=== PATIENT | female | born 1975 | race Caucasian/White ===

== ENCOUNTER 2022-06-30 11:45 | Inpatient (IN) | payer BC ==
[2022-07-05] MEDS ORDERED: Midazolam HCl 2 mg/2 ml Vial ONE (06:41)
[2022-07-05] MEDS ORDERED: fentaNYL PF 100 MCG/2 ML SYRINGE ONE (06:42)
[2022-07-05] MEDS ORDERED: Bupivacaine/Epinephrine 0.25% 30 ML VIAL ONE (07:13)
[2022-07-05] MEDS ORDERED: cefOXitin 2 GM VIAL ONE ×3 (07:26→17:29)
[2022-07-05] MEDS ORDERED: Sodium Chloride 0.9% 100 ML ONE ×2 (07:26→17:29)
[2022-07-05] MEDS ORDERED: Dexamethasone 20 MG/5 ML VIAL ONE (07:37)
[2022-07-05] MEDS ORDERED: Rocuronium Bromide 10 MG/ML (10ML VIAL) ONE (07:37)
[2022-07-05] MEDS ORDERED: Ketorolac Tromethamine 30 MG/ML VIAL ONE ×2 (07:37→15:58)
[2022-07-05] MEDS ORDERED: PROPOFOL 200 MG/20 ML VIAL ONE (07:37)
[2022-07-05] MEDS ORDERED: Ondansetron PF 4 MG/2 ML Vial ONE (07:37)
[2022-07-05 07:54] LABS: SARS-CoV-2 NAA Rapid Test Not Detected (NotDetected)
[2022-07-05] MEDS ORDERED: Promethazine HCl 25 MG/ML VIAL IVPB PRN (10:19)
[2022-07-05] MEDS ORDERED: Ondansetron HCl/PF 4 MG/2 ML Vial IVP PRN (10:19)
[2022-07-05] MEDS ORDERED: Promethazine HCl 25 MG/ML VIAL IM PRN ×3 (10:19→10:48)
[2022-07-05] MEDS ORDERED: HYDROmorphone 2 MG/ML VIAL SLOW IVP PRN (10:19)
[2022-07-05] MEDS ORDERED: Ondansetron PF 4 MG/2 ML Vial IVP PRN ×2 (10:33→10:48)
[2022-07-05] MEDS ORDERED: hydrALAZINE 20 MG/ML VIAL SLOW IVP PRN (10:33)
[2022-07-05] MEDS ORDERED: Zolpidem Tartrate 5 MG TAB PO PRN (10:48)
[2022-07-05] MEDS ORDERED: Naloxone HCl 0.4 mg/ml Vial IV PRN (10:48)
[2022-07-05] MEDS ORDERED: diphenhydrAMINE 50 MG/ML VIAL IM PRN (10:48)
[2022-07-05] MEDS ORDERED: diphenhydrAMINE 50 MG/ML VIAL IVP PRN (10:48)
[2022-07-05] MEDS ORDERED: FENTANYL 500 MCG/10 ML VIAL 2,000 MCG in Sodium Chloride 0.9% 60 ML IV PRN (10:48)
[2022-07-05] MEDS ORDERED: diphenhydrAMINE 25 MG CAP PO PRN (10:48)
[2022-07-05] MEDS ORDERED: Communication Order-Pharmacy FS SCH (11:00)
[2022-07-05] MEDS ORDERED: FENTANYL 50 MCG/ML 1 ML VIAL ONE (11:04)
[2022-07-05] MEDS: Sodium Chloride 0.9% 1,000 ML IV SCH ×2 (13:20→21:39)
[2022-07-05] MEDS: Ketorolac Tromethamine 30 MG/ML VIAL IVP SCH ×2 (16:04→21:39)
[2022-07-05] MEDS: cefOXitin 2 GM in Sodium Chloride 0.9% 100 ML IVPB SCH (17:40)
[2022-07-05] MEDS: Famotidine/PF 20 mg/2ml Vial SLOW IVP SCH (21:38)
[2022-07-05] MEDS: Famotidine 20 MG TAB PO SCH (21:39)
[2022-07-05 22:47] VITALS: BMI 27.1
[2022-07-06] MEDS: Ketorolac Tromethamine 30 MG/ML VIAL IVP SCH ×4 (03:41→23:14)
[2022-07-06] MEDS: cefOXitin 2 GM in Sodium Chloride 0.9% 100 ML IVPB SCH (03:43)
[2022-07-06 05:15] LABS: #Lymphocytes 1.4 thou/uL (1.20-3.40); #Monocytes 0.6 thou/uL (0.11-0.59); #Neutrophils 6.1 thou/uL (1.40-6.50); %Basophils 0.3 % (0.0-1.0); %Eosinophils 0.5 % (0.0-10.0); %Lymphocytes 17.1 % (21.0-51.0); %Monocytes 7.8 % (0.0-10.0); %Neutrophils 74.2 % (42.0-75.0); Hemoglobin 9.3 g/dL (12.0-16.0); Mean Corpuscular HGB CONC 32.6 g/dL (32.0-36.0); Mean Corpuscular Hemoglobin 26.4 pg (27.0-31.0); Mean Corpuscular Volume 80.9 fl (78.0-98.0); Mean Platelet Volume 7.1 fL (7.4-10.4); Platelet Count 256 10x3/uL (130-400); RBC Distribution Width 13.9 % (11.5-14.5); Red Blood Cell (RBC) Count 3.54 mill/uL (4.20-5.40); White Blood Cell (WBC) Count 8.2 10x3/uL (4.8-10.8)
[2022-07-06 05:35] LABS: Anion Gap 12 mmol/L (10-20); BUN (Urea Nitrogen) 6 mg/dL (7.0-18.7); Calc. Creatinine Clearance 81 mL/min (70-130); Calcium 7.5 mg/dL (7.8-10.44); Carbon Dioxide 19 mmol/L (22-29); Chloride 110 mmol/L (98-107); Estimated GFR 68; Glucose 96 mg/dL (70-105); Potassium 3.2 mmol/L (3.5-5.1); Sodium 138 mmol/L (136-145)
[2022-07-06] MEDS: Sodium Chloride 0.9% 1,000 ML IV SCH ×4 (06:43→23:24)
[2022-07-06] MEDS: Enoxaparin Sodium 40 MG/0.4 ML SYRINGE SC SCH (08:32)
[2022-07-06] MEDS: Famotidine/PF 20 mg/2ml Vial SLOW IVP SCH ×2 (08:32→20:38)
[2022-07-06] MEDS: Famotidine 20 MG TAB PO SCH ×2 (08:33→20:38)
[2022-07-07] MEDS: Ketorolac Tromethamine 30 MG/ML VIAL IVP SCH ×3 (05:05→16:48)
[2022-07-07] MEDS: Sodium Chloride 0.9% 1,000 ML IV SCH (08:43)
[2022-07-07] MEDS: Enoxaparin Sodium 40 MG/0.4 ML SYRINGE SC SCH (08:45)
[2022-07-07] MEDS: Famotidine/PF 20 mg/2ml Vial SLOW IVP SCH (08:45)
[2022-07-07] MEDS: Famotidine 20 MG TAB PO SCH (08:45)
[2022-07-07] MEDS ORDERED: FLU VACC QS2022-23(6MOS UP)/PF 60 MCG/0.5 ML SYRINGE IM ONE (09:00)
[2022-07-07] MEDS ORDERED: HYDROcodone/Acetaminophen 7.5/325 mg Tablet PO PRN (09:54)
[2022-07-07] MEDS ORDERED: DC PCA Order Set 1 EACH FS ONE (09:54)
[2022-07-07] MEDS: HYDROcodone/Acetaminophen 7.5/325 mg Tablet PO PRN ×2 (11:50→16:54)
[2022-07-07 16:25] VITALS: BP 129/84; TEMP 98.7
== END 2022-07-07 17:55 | disposition home or self-care (01) | DRG 330 ==
LOC: SURG A 07-05 06:13
PROVIDERS: ADMIT Surgery; ATTEND Surgery
PROC: 0DBG0ZZ Excision of Left Large Intestine, Open Approach (ICD-10-PCS; principal; 2022-07-05)
DX: C18.7 Malignant neoplasm of sigmoid colon (principal); K62.5 Hemorrhage of anus and rectum; Z20.822 Contact with and (suspected) exposure to COVID-19; J45.909 Unspecified asthma, uncomplicated; Z28.21 Immunization not carried out because of patient refusal; Z79.899 Other long term (current) drug therapy
CPT/HCPCS: 36415; 36416; 80048; 85025; 88305; 88309; A4649; J0694; J1100; J1650; J1885; J2250; J2405; J2704; J3010; J3490; J7050; J7643; S0028; U0002

== ENCOUNTER 2022-06-30 16:00 | Outpatient (CLI) | payer BC ==
[2022-06-30 17:07] LABS: #Eosinphils 0.2 10x3/uL (0.0-0.5); #Monocytes 0.7 10x3/uL (0.0-1.1); %Basophils 0.3 % (0.0-2.0); %Eosinophils 1.6 % (0.0-6.0); %Lymphocytes 18.7 % (18.0-47.0); %Monocytes 6.9 % (0.0-10.0); %Neutrophils 72.1 % (40.0-75.0); Hemoglobin 12.5 g/dL (12.0-15.5); Mean Corpuscular HGB CONC 32.7 g/dL (32.0-36.0); Mean Corpuscular Hemoglobin 25.1 pg (27.0-33.0); Mean Corpuscular Volume 76.6 fl (81.6-98.3); Mean Platelet Volume 9.5 fl (7.4-10.4); Platelet Count 417 10x3/uL (150-450); RBC Distribution Width 14.6 % (11.5-14.5); Red Blood Cell (RBC) Count 4.99 10x6/uL (3.90-5.03); White Blood Cell (WBC) Count 9.7 10x3/uL (3.5-10.5)
[2022-06-30 17:26] LABS: ALT (SGPT) 28 U/L (8-55); AST (SGOT) 20 U/L (5-34); Albumin 4.6 g/dL (3.5-5.0); Alkaline Phosphatase 78 U/L (40-110); Anion Gap 14 mmol/L (10-20); BUN (Urea Nitrogen) 8 mg/dL (7.0-18.7); Bilirubin, Total 1.2 mg/dL (0.2-1.2); Calc. Creatinine Clearance 0 mL/min (70-130); Calcium 9.2 mg/dL (7.8-10.44); Carbon Dioxide 22 mmol/L (22-29); Chloride 106 mmol/L (98-107); Estimated GFR 90; Globulin 3.1 g/dL (2.4-3.5); Glucose 94 mg/dL (70-105); Potassium 3.8 mmol/L (3.5-5.1); Protein, Total 7.7 g/dL (6.0-8.3); Sodium 138 mmol/L (136-145)
[2022-06-30 22:02] LABS: Hemoglobin A1c 5.5 % (4.0-6.0)
== END 2022-06-30 16:01 | disposition home or self-care (01) ==
LOC: LABBT 16:00
PROVIDERS: ATTEND Surgery
DX: Z01.812 Encounter for preprocedural laboratory examination (principal); C18.7 Malignant neoplasm of sigmoid colon
CPT/HCPCS: 80053; 82378; 83036; 85025